=== PATIENT | male | born 1950 | race African-American/Black ===

== ENCOUNTER → 2016-08-18 | Outpatient (CLI) | payer OTHER ==
--- NOTE | 2016-08-19 11:02 | DIREP ---
PROCEDURE:XRAY FOOT MIN 3 VWS-RT COMPARISON:None. INDICATIONS:PES PLANUS RECENT SX OF ACHILLES TENDON FINDINGS: BONES:Surgical changes involving the great toe are identified. There is a screw at the distal aspect of the proximal phalange, with the tip extending and contacting the base of the terminal phalanges. Screw also at the first metatarsal head. Lytic process to indicate infection is not identified. Abnormal appearance of the second and third metatarsal head, question tiny box. Degenerative changes at the distal aspect of the proximal phalange of the second toe, and base of first metatarsal. JOINTS:Normal. SOFT TISSUES:Normal. OTHER:No additional findings. CONCLUSION:No acute fracture. Surgical changes. No lytic process identified. Degenerative changes as above Dictated by: Miguel Greenfield MD on 08/19/2016 at 10:58 AM
== END | disposition home or self-care (01) ==
LOC: RAD 17:11
PROVIDERS: ATTEND Nurse Practitioner Family
DX: M21.41 Flat foot [pes planus] (acquired), right foot (principal); M76.61 Achilles tendinitis, right leg; M19.071 Primary osteoarthritis, right ankle and foot; Z98.890 Other specified postprocedural states
CPT/HCPCS: 73630-RT